=== PATIENT | male | born 1995 | race Caucasian/White ===

== ENCOUNTER 2018-01-04 23:08 | Emergency (ER) | payer SELFPAY ==
[2018-01-05] MEDS: KETOROLAC 60 MG INJ IM (01:05)
[2018-01-05] MEDS: DEXAMETHASONE 10 MG/ML 1 ML INJ IM (01:06)
== END 2018-01-05 01:45 | disposition home or self-care (01) ==
LOC: FTE 23:08
DX: K12.2 Cellulitis and abscess of mouth (principal); F17.210 Nicotine dependence, cigarettes, uncomplicated
CPT/HCPCS: 96372; 99284-25